=== PATIENT | male | born 1980 | race Caucasian/White ===

== ENCOUNTER 2021-12-10 20:00 | Outpatient (CLI) | payer BC, SELFPAY | END 2021-12-10 20:01 | disposition home or self-care (01) | LOC: SLEEP 12-11 08:13 | PROVIDERS: Visit Provider Family Medicine | DX: G47.10 Hypersomnia, unspecified (principal); R53.83 Other fatigue; R06.83 Snoring; G47.33 Obstructive sleep apnea (adult) (pediatric) | CPT/HCPCS: 95810 ==

== ENCOUNTER 2022-03-23 20:00 | Outpatient (CLI) | payer BC, SELFPAY | END 2022-03-23 20:01 | disposition home or self-care (01) | LOC: SLEEP 03-24 03:13 | PROVIDERS: Visit Provider Family Medicine | DX: G47.33 Obstructive sleep apnea (adult) (pediatric) (principal) | CPT/HCPCS: 95811 ==

== ENCOUNTER 2022-12-19 08:27 | Observation (INO) | payer BC, MEDICAID, SELFPAY ==
[2022-12-19 08:33] VITALS: BP 148/106; PULSE 61; RESP 16; TEMP 37.2; O2SAT 99; BMI 39.4
--- NOTE | 2022-12-19 08:40 | W.ED.PSYCHS ---
HPI - Psych General: Chief Complaint: Psychiatric Symptoms Stated Complaint: SI Time Seen by Provider: 12/19/22 08:29 Source: patient Mode of arrival: ambulatory History of Present Illness: 42-year-old male comes in depressed flat affect tearful. Per family member accompanying him he is going through divorce is not handling well is struggling with the adjustment. He has an appointment to establish with [facility] on January 04 but does not feel like he can last that long he has made statements that the family has interpreted as alluding to suicidal ideation stating he is not sure how long he can last like this or if he can make it, or what he will do to himself. complaint: feels depressed Onset (ago): day(s) Duration: intermittent History of same: No Relieving factors: none Exacerbating factors: none Associated psychiatric symptoms: depression Associated symptoms: Reports depression Review of Systems Const: Denies: fever(s), chills, fatigue or malaise ENMT: Denies: throat pain, ear or mastoid pain, nasal discharge or nasal congestion Card: Denies: chest pain, edema, dyspnea on exertion or orthopnea Resp: Denies: dyspnea, productive cough or non-productive cough GI: Denies: abdominal pain, nausea, vomiting, hematemesis, coffee ground emesis, diarrhea, constipation, bloating, hematochezia or melena : Denies: flank pain, dysuria, urinary frequency or urinary urgency Skin/Breast: Denies: rash or pruritus Psych: Reports: depression Physical Exam Const: GENERAL APPEARANCE: cooperative and comfortable ORIENTATION/CONSCIOUSNESS: Yes awake, Yes oriented to person, Yes oriented to place and Yes oriented to time HENMT: COMMON NORMALS: normocephalic, atraumatic and hearing grossly normal bilaterally HEAD & SCALP: normocephalic and atraumatic Resp: COMMON NORMALS: normal respiratory effort, No retractions, No use of accessory muscles and clear to auscultation bilaterally AUSCULTATION: clear to auscultation bilaterally Cardio: COMMON NORMALS: regular rate, regular rhythm and No murmurs present (Cardio) RATE: regular rate RHYTHM: regular rhythm Extremity: COMMON NORMALS: normal to inspection, capillary refill normal, no clubbing, cyanosis or edema, no calf tenderness and no pedal edema Neuro: SENSORIUM/ORIENTATION: Yes oriented to person, Yes oriented to place and Yes oriented to time Skin: COMMON NORMALS: no rashes or lesions noted GENERAL SKIN EXAM: no rashes or lesions noted Course Vital Signs: Vital signs: Vital Signs Temperature 98.9 F 12/19/22 08:33 Pulse Rate 61 12/19/22 08:33 Respiratory Rate 16 12/19/22 08:33 Blood Pressure 148/106 12/19/22 08:33 Pulse Oximetry 99 12/19/22 08:33 Oxygen Delivery Me thod Room Air 12/19/22 08:33 MDM - Psych Medical Decision Making Patient expressing suicidal ideation to his sister as well as review endorsing it to myself during the course of the interview. He is having difficult time adjusting to his divorce. He has not done anything to harm himself at the moment but is having suicidal thoughts although he declines to elaborate on his specific plan. He is willing to be admitted to the hospital will admit on a voluntary basis for suicidal ideation depression and adjustment disorder. Medical Records I reviewed the patient's medical records. Lab Data I reviewed the patient's lab results. 12/19/22 08:52 12/19/22 08:52 No radiology studies performed this visit Discharge Plan Discharge Patient Disposition: Admitted As Inpatient Admit Provider: Bony Alexis Clinical Impression: Suicidal ideation, Depression, Adjustment disorder with depressed mood Condition: Stable Coding Level of Care Code ED Patient Ambassador for Stuart Pal
--- NOTE | 2022-12-19 08:43 | PC.PHAR ---
PT STATES NOT BEEN TAKING LOSARTAN 50MG DAILY AND OMEPRAZOLE 40MG DAILY FOR A MONTH EXT SHOWS BOTH LAST FILLED 07/20/22 30D/S-PT STATES TAKES NO MEDICATIONS OR OTC MEDICATIONS
[2022-12-19 09:03] LABS: Basophils # 0.1 10^3/uL (0.0-0.1); Basophils % 0.5 %; Eosinophils # 0.1 10^3/uL (0.0-0.8); Eosinophils % 0.3 %; Hematocrit 50.3 % (37-53); Lymphocytes # 1.8 10^3/uL (0.8-4.8); Lymphocytes % 10.8 %; Mean Corpuscular HGB Conc 33.6 g/dL (30-55); Mean Corpuscular Hemoglobin 29.3 pg (27-33); Mean Corpuscular Volume 87.2 fl (82-101); Mean Platelet Volume 9.5 fL (7.4-10.4); Monocytes # 1.2 10^3/uL (0.2-0.9); Monocytes % 6.9 %; Neutrophils % 81.1 %; Nucleated Red Blood Cells % 0 %; Platelet Count 270 10^3/cmm (157-399); Red Blood Count 5.77 10^6/uL (3.85-5.65); Red Cell Distribution Width 13.4 % (12.1-15.1); White Blood Count 17.01 10^3/uL (3.29-11.43)
[2022-12-19 09:29] LABS: Acetaminophen < 5.0 ug/mL (10-30); Alanine Aminotransferase 22 U/L (0-41); Albumin Level 4.5 g/dL (3.5-5.2); Alkaline Phosphatase 73 U/L (40-130); Anion Gap 14.7 (5-19); Aspartate Amino Transferase 12 U/L (0-40); Blood Urea Nitrogen 7 mg/dL (6-20); Calcium 9.3 mg/dL (8.5-10.5); Carbon Dioxide 26 mmol/L (22-29); Chloride 99 mmol/L (98-107); Creatinine Clr Calc Pharmacy 132.7741; Glomerular Filtration Rate 106.5 mL/min (90-130); Glucose 108 mg/dL (65-115); Osmolality Calculated 281 mOsm/kg (285-295); Potassium 3.7 mmol/L (3.5-5.1); Salicylate < 0.3 mg/dL (3-10); Sodium 136 mmol/L (136-145); Total Bilirubin 0.8 mg/dL (0.15-1.2); Total Protein 7.5 g/dL (6.6-8.7)
[2022-12-19 10:04] VITALS: BP 130/85; PULSE 58; RESP 16; TEMP 36.7; O2SAT 100
[2022-12-19 10:05] VITALS: BMI 39.4
--- NOTE | 2022-12-19 12:13 | PC.NURSE ---
patient sitting in dayroom, patient wanting to be discharged because he doesn't think he needs to be here. Patient stated that he has a life outside of here, a job to get to on Wednesday and children. Patient told that the doctor needs to see him first. This nurse notified doctor of patient wanting to leave AMA
[2022-12-19 14:00] VITALS: BP 117/75; PULSE 56; RESP 16; TEMP 36.7; O2SAT 100
[2022-12-19 22:00] VITALS: BP 114/72; PULSE 76; RESP 16; TEMP 36.9; O2SAT 93
[2022-12-20 06:00] VITALS: BP 110/73; PULSE 56; RESP 17; O2SAT 96
--- NOTE | 2022-12-20 09:00 | P.NPUHP_ITS ---
Providers/Chief Complaint Admitting Physician: Bony Alexis MD Chief Complaint: SI HPI NPU History of Present Illness Jono Clark is a 42 year old male Deepak work but Chief Complaint: Psychiatric Symptoms Stated Complaint: SI Time Seen by Provider: 12/19/22 08:29 Source: patient Mode of arrival: ambulatory History of Present Illness: 42-year-old male comes in depressed flat affect tearful. Per family member accompanying him he is going through divorce is not handling well is struggling with the adjustment. He has an appointment to establish with [facility] on January 04 but does not feel like he can last that long he has made statements that the family has interpreted as alluding to suicidal ideation stating he is not sure how long he can last like this or if he can make it, or what he will do to himself. complaint: feels depressed Onset (ago): day(s) Duration: intermittent History of same: No Relieving factors: none Exacerbating factors: none Associated psychiatric symptoms: depression Associated symptoms: Reports depression The patient was admitted to the neuropsychiatric unit for definitive treatment of those issues. The patient presents today reporting that he is not currently on any psychiatric medications. The patient reports that he is getting a divorce and has sole custody of his three kids, who are 11, 10, and 8 years old. He reports that he has been depressed and has a doctor?s appointment on the to address that, but life has just built up until it is too much. He reports that, as a result, he came to the hospital yesterday, but states that by the time he got here he was fine. He reports that his sister suggested that he go to the hospital to get on some medication until he could get to his primary care physician appointment. And he stated, ?the next thing I know I?m up here.? He denies any psychiatric hospitalizations or recent psychiatric medications; he reports he may have taken Zoloft a long time ago. He denies any outpatient services or counseling. He reports that he smokes a pack of cigarettes a day. He denies alcohol use. He denies marijuana use or any other illicit drug use. He denies drug rehabilitation, DUI, or drug related charges. He denies mental health issues as a child. He reports that he is just currently feeling overwhelmed with everything, he is trying to move, and there are issues he is juggling because of the divorce. He endorses sleep difficulties, appetite changes/low appetite, passive wish. He denies suicidal thoughts. He denies paranoia, nightmares or flashbacks, or auditory or visual hallucinations. PSYCHIATRIC HISTORY: As above. SUBSTANCE ABUSE HISTORY: As above.? FAMILY HISTORY: The patient endorses mental health issues on his mother?s side of the family. He endorses addiction issues on his father?s side of the family. He denies any suicide attempts or completions. DEVELOPMENTAL HISTORY: The patient denies any issues with his mother?s or delivery of him. The patient reports learning to walk and talk and meeting developmental milestones on time. The patient denies speech therapy, learning support, emotional support, or special education classes. He denies IEP or 504 plans. PSYCHOSOCIAL HISTORY: The patient reports that his mother and father were together at his , and father left when he was 10 years old. He has an older brother and sister from that union. He denies any other siblings. He reports that his mom worked two jobs to support them. He denies neglect, or emotional, physical, or sexual abuse. He denies CYS involvement or placements. He denies traumas outside the home. He reports that he graduated from high school. He is a [employer]. He endorses being heterosexual, with his longest relationship being thirteen years. He has been once and is getting a divorce. He has three children, who are 11, 10, and 8 years old. He has not been in the . He endorses being Religion. He reports that his longest job was 8 years. He currently lives at his sister?s house with his three children, his mother, and his sister and her . LEGAL HISTORY: The patient denies care home time. MEDICAL HISTORY: The patient endorses allergy to penicillin. He reports that he had his appendix removed. He has high blood pressure and reports that he has not been taking his blood pressure medication recently. Meds NPU Home Medications Medication Instructions Recorded Confirmed Last Taken Type fluoxetine 20 mg capsule 20 mg PO DAILY 30 days #30 caps 12/20/22 Unknown Rx losartan 50 mg tablet 50 mg PO DAILY 30 days #30 tabs 12/20/22 Unknown Rx Allergies Allergy/AdvReac Type Severity Reaction Status Date / Time amoxicillin Allergy Unknown Verified 10/07/23 08:39 Penicillins Allergy Unknown Verified 12/19/22 08:39 Mental Status Exam MSE Comments: This is a well-nourished, well-developed, white male, in hospital scrubs, with adequate grooming and eye contact. No abnormal movements. Cooperative with exam in mild distress. Speech was normal rate and volume. Mood described as good, ready to go; affect congruent. Thought process, organized. Thought content: p atient denied any suicidal or homicidal ideation, there were no delusions reported or noted, patient denied any auditory or visual hallucinations. Attention, concentration, and memory appeared intact, but none were formally tested. Alert and oriented times three. Insight and judgment are good. Impulse control is good. Vitals/I&O/Wt Last Vital Signs Temp 98.4 F 12/19/22 22:00 Pulse 56 L 12/20/22 06:00 Resp 17 12/20/22 06:00 BP 110/73 12/20/22 06:00 Pulse Ox 96 12/20/22 06:00 O2 Del Method Room Air 12/20/22 06:00 Weight last 48 hrs Weight 105.857 kg Weight 104.326 kg Weight 104.326 kg Data NPU 12/19/22 08:52 12/19/22 08:52 A&P Assessment and plan (1) Depression: (2) Adjustment disorder with depressed mood: Plan This is a 42-year-old, white male, with genetic loading for mental health and addiction issues, with limited history of mental health issues or treatment, who presents reporting he is going through a divorce and life has been overwhelming, and he is interested in starting medication. 1.? Start Prozac 20 mg po q daily. 2.? Check into whether he has refills for blood pressure medication. 3.? Encourage patient get appointment at [facility] and have follow up treatment arranged. 4.? Advised patient about the Crisis Unit for future reference. Involuntary Hold Information 96 Hour Hold: 96 Hour Involuntary Admission: No Attestations NPU Medical Necessity Statement*: Inpatient hospitalization would be helpful, but not medically necessary at this time. Will discharge with follow up. Coding Level of Care Code Acute Code for [facility] Fwd Diagnoses Depression F32.A Adjustment disorder with depressed mood F43.21
--- NOTE | 2022-12-20 09:05 | PC.NURSE ---
Patient denies si/hi and avh. He states he is depressed and came to the ER to get started on antidepressants. He states he never felt suicidal and that he doesn't believe he needs to be here. He says if he hasn't been seen in 24 hours he is leaving AMA. Dr. Alexis was contacted and said he would be in to see the patient soon. He states, I'm not trying to be rude, but I can do the same shit at home that I'm doing here. I have 3 kids at home I have to get on the bus in the morning. My 70 year old mom is watching them right now. And I have to be at work tomorrow. I don't want to hurt myself at all.
[2022-12-20 10:09] VITALS: BP 110/73
[2022-12-20] MEDS: pantoprazole DR 40 mg Tablet PO (10:09)
[2022-12-20] MEDS: losartan 50 mg Tablet PO (10:09)
[2022-12-20] MEDS: fluoxetine 20 mg Capsule PO (10:10)
[2022-12-20 10:15] VITALS: BP 110/73; PULSE 72; RESP 16; TEMP 36.3; O2SAT 98
--- NOTE | 2022-12-20 10:17 | P.NPUDS_ITS ---
Reason for Visit Reason for Visit: SI Brief History: History of Present Illness Jono Clark is a 42 year old male Deepak work but Chief Complaint: Psychiatric Symptoms Stated Complaint: SI Time Seen by Provider: 12/19/22 08:29 Source: patient Mode of arrival: ambulatory History of Present Illness:?? 42-year-old male comes in depressed flat affect tearful.? Per family member accompanying him he is going through divorce is not handling well is struggling with the adjustment.? He has an appointment to establish with [facility] on January 04 but does not feel like he can last that long he has made statements that the family has interpreted as alluding to suicidal ideation stating he is not sure how long he can last like this or if he can make it, or what he will do to himself. ? MD complaint: feels depressed Onset (ago): day(s) Duration: intermittent History of same: No Relieving factors: none Exacerbating factors: none Associated psychiatric symptoms: depression Associated symptoms: Reports depression The patient was admitted to the neuropsychiatric unit for definitive treatment of those issues. The patient presents today reporting that he is not currently on any psychiatric medications. The patient reports that he is getting a divorce and has sole custody of his three kids, who are 11, 10, and 8 years old. He reports that he has been depressed and has a doctor?s appointment on the ?to address that, but life has just built up until it is too much. He reports that, as a result, he came to the hospital yesterday, but states that by the time he got here he was fine. He reports that his sister suggested that he go to the hospital to get on some medication until he could get to his primary care physician appointment. And he stated, ?the next thing I know I?m up here.? He d enies any psychiatric hospitalizations or recent psychiatric medications; he reports he may have taken Zoloft a long time ago. He denies any outpatient services or counseling. He reports that he smokes a pack of cigarettes a day. He denies alcohol use. He denies marijuana use or any other illicit drug use. He denies drug rehabilitation, DUI, or drug related charges. He denies mental health issues as a child. He reports that he is just currently feeling overwhelmed with everything, he is trying to move, and there are issues he is juggling because of the divorce. He endorses sleep difficulties, appetite changes/low appetite, passive wish. He denies suicidal thoughts. He denies paranoia, nightmares or flashbacks, or auditory or visual hallucinations. PSYCHIATRIC HISTORY: As above. SUBSTANCE ABUSE HISTORY: As above.? FAMILY HISTORY: The patient endorses mental health issues on his mother?s side of the family. He endorses addiction issues on his father?s side of the family. He denies any suicide attempts or completions. DEVELOPMENTAL HISTORY: The patient denies any issues with his mother?s or delivery of him. The patient reports learning to walk and talk and meeting developmental milestones on time. The patient denies speech therapy, learning support, emotional support, or special education classes. He denies IEP or 504 plans. PSYCHOSOCIAL HISTORY: The patient reports that his mother and father were together at his , and father left when he was 10 years old. He has an older brother and sister from that union. He denies any other siblings. He reports that his mom worked two jobs to support them. He denies neglect, or emotional, physical, or sexual abuse. He denies CYS involvement or placements. He denies traumas outside the home. He reports that he graduated from high school. He is a [employer]. He endorses being heterosexual, with his longest relationship being thirteen years. He has been once and is getting a divorce. He has three children, who are 11, 10, and 8 years old. He has not been in the . He endorses being Anabaptist. He reports that his longest job was 8 years. He currently lives at his sister?s house with his three children, his mother, and his sister and her . LEGAL HISTORY: The patient denies penitentiary time. MEDICAL HISTORY: The patient endorses allergy to penicillin. He reports that he had his appendix removed. He has high blood pressure and reports that he has not been taking his blood pressure medication recently. Hospital Course Hospital Course He acclimated to the individual, group and milieu therapies provided.? Patient presented for evaluation reporting that he had been overwhelmed and feeling a need to urgently get restarted on medication and connected to resources. He aggressively denied lethality and reports that he came here at the behest of his sister because everyone was getting very concerned and feeling he needed to have some immediate interventions. He reports he was not feeling he would kill himself just felt really bad and sad and came to the hospital to dispel the concerns of his family. We agreed we would initiate Prozac 20 mg p.o. every morning which he took without concern and he has a follow-up appointment with his PCP in less than 2 weeks. We discussed the crisis stabilization unit and the support that it could provide.? He was unaware of that facility.? Otherwise he was monitored on the unit and reported improvement and denied lethality. He had modest improvement during the hospitalization and he was able to contract for safety outside the hospital prior to discharge.? During the hospitalization, patient had routine laboratory studies which were within normal limits except for few outliers.? Additionally there was a general medical evaluation which was also within normal limits and revealed no new acute processes. Discharge Summary: At the time of discharge, he denied psychosis or lethality.? Mood and anxiety were well managed.? Patient endorsed a plan to avoid all drugs of abuse and follow-up with the aftercare recommendations of the treatment team.? Patient was evaluated and deemed to be absent credible lethality, and had achieved benefit from the inpatient hospitalization and was voluntary and no longer wanted inpatient care, so was discharged. Involuntary Hold Information 96 Hour Hold: 96 Hour Involuntary Admission: No Mental Status Exam MSE Comments: This is a well-nourished, well-developed, white male, in hospital scrubs, with adequate grooming and eye contact. No abnormal movements. Cooperative with exam in mild distress. Speech was normal rate and volume. Mood described as good, ready to go; affect congruent. Thought process, organized. Thought content: patient denied any suicidal or homicidal ideation, there were no delusions reported or noted, patient denied any auditory or visual hallucinations. Attention, concentration, and memory appeared intact, but none were formally tested. Alert and oriented times three. Insight and judgment are good. Impulse control is good. Discharge Data Studies Completed and Pending: Laboratory Results WBC 17.01 10^3/uL (3. 29-11.43) H 12/19/22 08:52 RBC 5.77 10^6/uL (3.8 5-5.65) H 12/19/22 08:52 Hgb 16.90 g/dL (11.27 -16.99) 12/19/22 08:52 Hct 50.3 % (37-53) 12/19/22 08:52 MCV 87.2 fl (82-101) 12/19/22 08:52 MCH 29.3 pg (27-33) 12/19/22 08:52 MCHC 33.6 g/dL (30-55) 12/19/22 08:52 RDW 13.4 % (12.1-15.1 ) 12/19/22 08:52 Plt Count 270 10^3/cmm (157 -399) 12/19/22 08:52 MPV 9.5 fL (7.4-10.4) 12/19/22 08:52 Neut % (Auto) 81.1 % 12/19/22 08:52 Lymph % (Auto) 10.8 % 12/19/22 08:52 Petroleum % (Auto) 6.9 % 12/19/22 08:52 Eos % (Auto) 0.3 % 12/19/22 08:52 Baso % (Auto) 0.5 % 12/19/22 08:52 Neut # (Auto) 13.80 10^3/uL (1. 8-7.7) H 12/19/22 08:52 Lymph # (Auto) 1.8 10^3/uL (0.8- 4.8) 12/19/22 08:52 Petroleum # (Auto) 1.2 10^3/uL (0.2- 0.9) H 12/19/22 08:52 Eos # (Auto) 0.1 10^3/uL (0.0- 0.8) 12/19/22 08:52 Baso # (Auto) 0.1 10^3/uL (0.0- 0.1) 12/19/22 08:52 Nucleated RBC % (a uto) 0 % 12/19/22 08:52 Nucleated RBCs # 0.0 /100WBC 12/19/22 08:52 Sodium 136 mmol/L (136-1 45) 12/19/22 08:52 Potassium 3.7 mmol/L (3.5-5 .1) 12/19/22 08:52 Chloride 99 mmol/L (98-107 ) 12/19/22 08:52 Carbon Dioxide 26 mmol/L (22-29) 12/19/22 08:52 Anion Gap 14.7 (5-19) 12/19/22 08:52 BUN 7 mg/dL (6-20) 12/19/22 08:52 Creatinine 0.8 mg/dL (0.7-1. 2) 12/19/22 08:52 GFR Calculation 106.5 mL/min (90- 130) 12/19/22 08:52 Glucose 108 mg/dL (65-115 ) 12/19/22 08:52 Calculated Osmolal ity 281 mOsm/kg (285- 295) L 12/19/22 08:52 Calcium 9.3 mg/dL (8.5-10 .5) 12/19/22 08:52 Total Bilirubin 0.8 mg/dL (0.15-1 .2) 12/19/22 08:52 AST 12 U/L (0-40) 12/19/22 08:52 ALT 22 U/L (0-41) 12/19/22 08:52 Alkaline Phosphata se 73 U/L (40-130) 12/19/22 08:52 Total Protein 7.5 g/dL (6.6-8.7 ) 12/19/22 08:52 Albumin 4.5 g/dL (3.5-5.2 ) 12/19/22 08:52 Globulin 3.0 g/dL (1.3-4.6 ) 12/19/22 08:52 Salicylates < 0.3 mg/dL (3-10 ) L 12/19/22 08:52 Acetaminophen < 5.0 ug/mL (10-3 0) L 12/19/22 08:52 Vitals: Last Vital Signs Temp 98.4 F 12/19/22 22:00 Pulse 56 L 12/20/22 06:00 Resp 17 12/20/22 06:00 BP 110/73 12/20/22 10:09 Pulse Ox 96 12/20/22 06:00 O2 Del Method Room Air 12/20/22 06:00 Discharge Plan Discharge Patient Disposition: Home Condition: Stable Prescriptions: New losartan 50 mg Tablet 50 mg PO DAILY 30 Days Qty: 30 0RF fluoxetine 20 mg Capsule 20 mg PO DAILY 30 Days Qty: 30 1RF Discharge Orders: Discharge Order (Routine); Ordered 12/20/22 Ordered By: Bony Alexis Discharge Diet: Regular Discharge Activity: Resume usual activity Patient Instructions: Depression, Fluoxetine (By mouth) (Fluoxetine HCl, Gaboxetine, Prozac, Prozac Weekly), Losartan (By mouth) (Cozaar), Opioid Safety Discharge Attestations NPU Time Spent in Discharge Care*: greater than 30 min Specific Discharge Activities: Specific discharge activities: educating patient, discussing with correctional counselor/case manager/social workers/dc planners, documenting/other paperwork and evaluating patient/reviewing data Coding Level of Care Code Acute Chg DC note Diagnoses
== END 2022-12-20 10:31 | disposition home or self-care (01) ==
LOC: ER 08:56 → NP 09:11
PROVIDERS: Admitting Provider Psychiatry & Neurology Psychiatry; Emergency Provider Family Medicine; Visit Provider Psychiatry & Neurology Psychiatry
DX: F32.A Depression, unspecified (principal); F43.21 Adjustment disorder with depressed mood
CPT/HCPCS: 36415; 80053; 80307; 85025; 99285; G0378